=== PATIENT | male | born 1975 | race Caucasian/White ===

== ENCOUNTER 2020-02-19 01:41 | Outpatient (CLI) | payer SELFPAY ==
[2020-02-20 14:26] LABS: COVID-19 RT-PCR Result NEGATIVE (Negative)
== END 2020-02-19 02:01 ==
PROVIDERS: PCP Family Medicine; Visit Provider Nurse Practitioner Family
DX: Z11.59 Encounter for screening for other viral diseases (principal)
CPT/HCPCS: U0003